=== PATIENT | female | born 2000 | race Hispanic/Latino ===

== ENCOUNTER 2024-03-23 08:46 | Emergency (ER) | payer OTHER ==
[~2024-03-23] VITALS: Ht 143.5 cm; Wt 43.2 kg
[2024-03-23 09:34] LABS: BASO% 0.1 % (0-3); EOS% 0.9 % (0-8); HEMATOCRIT 39.7 % (37.0-47.0); IMMATURE GRANULOCYTES 0.2 % (0.0-5.0); LYMPH% 18.3 % (15-41); MEAN CORPUSCULAR HGB 28.8 pG CALC (26.0-32.0); MEAN CORPUSCULAR HGB CONC 32.7 g/dL CAL (32.0-36.0); MONO% 9.5 % (2-13); NEUT# 8.44 thou/uL (2.00-7.15); RED BLOOD COUNT 4.51 mill/uL (4.20-5.60)
[2024-03-23 09:40] VITALS: BP 120/76
[2024-03-23 09:56] LABS: ALBUMIN 4.7 g/dL (3.2-5.0); BILIRUBIN, TOTAL 0.6 mg/dL (0.02-1.3); CREATININE 0.7 mg/dL (0.5-1.0); POTASSIUM 4.4 mmol/l (3.5-5.1); TOTAL PROTEIN 8.5 g/dL (6.3-8.2)
[2024-03-23 10:08] LABS: URINE BILIRUBIN - DIPSTICK Negative (NEGATIVE); URINE BLOOD DIPSTICK Negative (NEGATIVE); URINE GLUCOSE - DIPSTICK Negative (NEGATIVE); URINE KETONE Negative (NEGATIVE); URINE LEUK ESTERASE Negative (NEGATIVE); URINE PROTEIN - DIPSTICK Negative (NEG-TRACE); URINE UROBILINOGEN - DIPSTICK 0.2 E.U./dL (0.2)
[2024-03-23 10:09] LABS: URINE COLOR Yellow; URINE NITRITE - DIPSTICK Positive (Negative)
[2024-03-23 10:16] LABS: URINE BACTERIA MANY hpf
[2024-03-23 10:17] LABS: URINE SQUAMOUS EPITHELIAL CELL FEW EPI/hpf (0-FEW)
[2024-03-23] MEDS ORDERED: CEPHALEXIN500 MG PO (11:35)
[2024-03-23] MEDS ORDERED: NAPROXEN500 MG PO (11:40)
[2024-03-23 11:47] VITALS: BP 99/74
== END 2024-03-23 12:02 | disposition home or self-care (01) | DRG 690 ==
LOC: ED 08:46
PROVIDERS: Family Medicine
DX: N39.0 Urinary tract infection, site not specified (principal); B96.20 Unspecified Escherichia coli [E. coli] as the cause of diseases classified elsewhere